=== PATIENT | male | born 1955 | race Caucasian/White ===

== ENCOUNTER 2017-11-22 10:07 | Inpatient (IN) | payer OTHER ==
[2017-11-22 10:57] LABS: ADD MAN DIFF? NO
[2017-11-22] MEDS: ASPIRIN 325 MG TAB PO (10:58)
[2017-11-22] MEDS: SOD CHLORIDE 0.9% 1,000 ML IV ×2 (10:59→12:24)
[2017-11-22 11:02] LABS: BASOPHILS % 0.4 % (0.0-2.0); EOSINOPHILS # 0.3 10^3/ul (0.0-0.5); EOSINOPHILS % 3.3 % (0.0-7.0); HEMOGLOBIN 12.9 g/dl (14.0-18.0); LYMPHOCYTES # 1.9 10^3/ul (0.8-2.9); LYMPHOCYTES % 25.3 % (15.0-51.0); MEAN CORPUSCULAR HEMOGLOBIN 27.2 pg (29.0-33.0); MEAN CORPUSCULAR HGB CONC 33.9 g/dl (32.0-37.0); MEAN PLATELET VOLUME 9.8 fl (7.4-10.4); MONOCYTE # 0.6 10^3/ul (0.3-0.9); MONOCYTES % 7.9 % (0.0-11.0); NEUTROPHIL # 4.8 10^3/ul (1.6-7.5); NEUTROPHILS % 62.6 % (39.0-77.0); PLATELET COUNT 181 10^3/UL (140-415); RED BLOOD COUNT 4.75 10^6/ul (4.70-6.10)
[2017-11-22 11:02] LABS: WHITE BLOOD COUNT 7.6 10^3/ul (4.8-10.8)
[2017-11-22 11:22] LABS: INR 1.02; PARTIAL THROMBOPLASTIN TIME 24.2 Sec (25.0-35.0); PROTIME 13.5 Sec (11.9-14.9); PT RATIO 1.1
[2017-11-22 11:24] LABS: ALANINE AMINOTRANSFERASE 28 IU/L (13-69); ALBUMIN 3.7 g/dl (3.3-4.9); ALBUMIN/GLOBULIN RATIO 1.27; ALKALINE PHOSPHATASE 91 IU/L (42-121); ANION GAP 18 (8-16); ASPARTATE AMINO TRANSFERASE 19 IU/L (15-46); BILIRUBIN,INDIRECT 0.4 mg/dl (0-1.1); BILIRUBIN,TOTAL 0.4 mg/dl (0.2-1.3); BLOOD UREA NITROGEN 20 mg/dl (7-20); CALCIUM 8.7 mg/dl (8.4-10.2); CARBON DIOXIDE 24 mmol/L (21-31); CHLORIDE 103 mmol/L (97-110); GLUCOSE 293 mg/dl (70-220); POTASSIUM 3.5 mmol/L (3.5-5.1); SODIUM 141 mmol/L (135-144); TOTAL PROTEIN 6.6 g/dl (6.1-8.1)
[2017-11-22 11:35] LABS: TROPONIN-I 0.015 ng/ml (0.000-0.120)
[2017-11-22] MEDS ORDERED: ONDANSETRON 4 MG INJ IV (12:30)
[2017-11-22] MEDS ORDERED: ACETAMINOPHEN 325 MG TAB PO ×2 (12:30→16:30)
[2017-11-22] MEDS: ASPIRIN (EC) 81 MG TAB PO (16:00)
[2017-11-22] MEDS ORDERED: DEXTROSE 50% 50 ML SYRINGE IV ×4 (16:30)
[2017-11-22] MEDS ORDERED: GLUCOSE GEL 15 GRAM TUBE PO ×4 (16:30)
[2017-11-22] MEDS ORDERED: GLUCOSE GEL 15 GRAM TUBE BUCCAL ×2 (16:30)
[2017-11-22] MEDS ORDERED: GLUCAGON 1 MG INJ IM ×2 (16:30)
[2017-11-22 16:46] LABS: CHOLESTEROL 111 mg/dl (100-200)
[2017-11-22 16:46] LABS: CHOL/HDL RATIO 3.5 RATIO; HDL CHOLESTEROL 31 mg/dl (30-78); LDL CHOLESTEROL,CALCULATED 39 mg/dl; TRIGLYCERIDES 205 mg/dl (0-149)
[2017-11-22] MEDS: DILTIAZEM (CD) 120 MG CAP PO (17:00)
[2017-11-22 17:17] LABS: PROSTATE SPECIFIC ANTIGEN 2.5 ng/ml (0.0-4.0)
[2017-11-22] MEDS: ACCU-CHEK XX ×2 (17:29→21:06)
[2017-11-22 17:30] LABS: HEMOGLOBIN A1C 13.2 % (0-5.9)
[2017-11-22] MEDS: glipiZIDE 10 MG TAB PO (17:47)
[2017-11-22] MEDS: RIVAROXABAN 20 MG TABLET PO (17:47)
[2017-11-22] MEDS: INSULIN ASPART [NOVOLOG] 3 ML PEN SC ×2 (17:51→21:05)
[2017-11-22] MEDS: TAMSULOSIN (SR) 0.4 MG CAP PO (20:53)
[2017-11-22] MEDS: ATORVASTATIN 40 MG TAB PO (20:54)
[2017-11-22] MEDS: MONTELUKAST 10 MG TAB PO (20:54)
[2017-11-22] MEDS: METOPROLOL 50 MG TAB PO (20:58)
[2017-11-22] MEDS: INSULIN GLARGINE [LANTus] (100 UNITS/ML) SYG SC (21:05)
[2017-11-23] MEDS: ACCU-CHEK XX ×2 (02:55→07:00)
[2017-11-23] MEDS ORDERED: ACCU-CHEK XX (07:00)
[2017-11-23] MEDS: DILTIAZEM (CD) 120 MG CAP PO (08:00)
[2017-11-23] MEDS: METOPROLOL 50 MG TAB PO ×2 (08:01→21:00)
[2017-11-23] MEDS: ASPIRIN (EC) 81 MG TAB PO (08:07)
[2017-11-23] MEDS: glipiZIDE 10 MG TAB PO ×2 (08:07→17:45)
[2017-11-23] MEDS: metFORMIN 500 MG TAB PO ×2 (08:08→17:45)
[2017-11-23] MEDS: LINAGLIPTIN 5 MG TABLET PO (08:08)
[2017-11-23] MEDS: INSULIN ASPART [NOVOLOG] 3 ML PEN SC ×7 (08:14→21:00)
[2017-11-23] MEDS: RIVAROXABAN 20 MG TABLET PO (17:45)
[2017-11-23] MEDS: MONTELUKAST 10 MG TAB PO (21:44)
[2017-11-23] MEDS: ATORVASTATIN 40 MG TAB PO (21:45)
[2017-11-23] MEDS: TAMSULOSIN (SR) 0.4 MG CAP PO (21:45)
[2017-11-23] MEDS: INSULIN GLARGINE [LANTus] (100 UNITS/ML) SYG SC (22:19)
[2017-11-24] MEDS: ACCU-CHEK XX (02:43)
[2017-11-24] MEDS: INSULIN ASPART [NOVOLOG] 3 ML PEN SC ×7 (07:45→20:45)
[2017-11-24] MEDS: ASPIRIN (EC) 81 MG TAB PO (08:12)
[2017-11-24] MEDS: glipiZIDE 10 MG TAB PO ×2 (08:12→17:31)
[2017-11-24] MEDS: metFORMIN 500 MG TAB PO ×2 (08:13→17:30)
[2017-11-24] MEDS: METOPROLOL 50 MG TAB PO ×2 (08:13→20:41)
[2017-11-24] MEDS: LINAGLIPTIN 5 MG TABLET PO (08:13)
[2017-11-24 14:50] LABS: ADD MAN DIFF? NO
[2017-11-24 14:53] LABS: BASOPHILS % 0.5 % (0.0-2.0); EOSINOPHILS # 0.3 10^3/ul (0.0-0.5); EOSINOPHILS % 3.2 % (0.0-7.0); HEMATOCRIT 38.6 % (42.0-52.0); HEMOGLOBIN 12.9 g/dl (14.0-18.0); LYMPHOCYTES # 2.2 10^3/ul (0.8-2.9); LYMPHOCYTES % 27.4 % (15.0-51.0); MEAN CORPUSCULAR HEMOGLOBIN 26.9 pg (29.0-33.0); MEAN CORPUSCULAR HGB CONC 33.4 g/dl (32.0-37.0); MEAN CORPUSCULAR VOLUME 80.6 fl (82.0-101.0); MEAN PLATELET VOLUME 9.8 fl (7.4-10.4); MONOCYTE # 0.8 10^3/ul (0.3-0.9); MONOCYTES % 9.6 % (0.0-11.0); NEUTROPHIL # 4.7 10^3/ul (1.6-7.5); NEUTROPHILS % 58.8 % (39.0-77.0); PLATELET COUNT 198 10^3/UL (140-415); RED BLOOD COUNT 4.79 10^6/ul (4.70-6.10); RED CELL DISTRIBUTION WIDTH 13.2 % (11.5-14.5)
[2017-11-24 14:53] LABS: WHITE BLOOD COUNT 7.9 10^3/ul (4.8-10.8)
[2017-11-24 15:17] LABS: ANION GAP 10 (8-16); BLOOD UREA NITROGEN 14 mg/dl (7-20); CALCIUM 9.2 mg/dl (8.4-10.2); CARBON DIOXIDE 26 mmol/L (21-31); CHLORIDE 105 mmol/L (97-110); GLUCOSE 116 mg/dl (70-220); POTASSIUM 4.3 mmol/L (3.5-5.1); SODIUM 137 mmol/L (135-144)
[2017-11-24] MEDS: RIVAROXABAN 20 MG TABLET PO (17:30)
[2017-11-24] MEDS: TAMSULOSIN (SR) 0.4 MG CAP PO (20:46)
[2017-11-24] MEDS: NIFEdipine (XL) 30 MG TAB PO (20:46)
[2017-11-24] MEDS: ATORVASTATIN 40 MG TAB PO (20:46)
[2017-11-24] MEDS: MONTELUKAST 10 MG TAB PO (20:46)
[2017-11-24] MEDS: INSULIN GLARGINE [LANTus] (100 UNITS/ML) SYG SC (20:49)
[2017-11-25] MEDS: ACCU-CHEK XX (02:00)
[2017-11-25] MEDS: INSULIN ASPART [NOVOLOG] 3 ML PEN SC ×7 (08:00→20:59)
[2017-11-25] MEDS: NIFEdipine (XL) 30 MG TAB PO ×2 (08:54→20:59)
[2017-11-25] MEDS: glipiZIDE 10 MG TAB PO ×2 (08:54→17:22)
[2017-11-25] MEDS: METOPROLOL 50 MG TAB PO ×2 (08:55→20:58)
[2017-11-25] MEDS: LINAGLIPTIN 5 MG TABLET PO (08:55)
[2017-11-25] MEDS: ASPIRIN (EC) 81 MG TAB PO (08:55)
[2017-11-25] MEDS: metFORMIN 500 MG TAB PO ×2 (08:55→17:22)
[2017-11-25] MEDS: RIVAROXABAN 20 MG TABLET PO (17:22)
[2017-11-25] MEDS: ATORVASTATIN 40 MG TAB PO (20:57)
[2017-11-25] MEDS: TAMSULOSIN (SR) 0.4 MG CAP PO (20:57)
[2017-11-25] MEDS: MONTELUKAST 10 MG TAB PO (20:57)
[2017-11-25] MEDS: INSULIN GLARGINE [LANTus] (100 UNITS/ML) SYG SC (21:17)
[2017-11-26] MEDS: ACCU-CHEK XX (01:43)
[2017-11-26 05:39] LABS: ADD MAN DIFF? NO
[2017-11-26 05:47] LABS: BASOPHIL # 0.1 10^3/ul (0.0-0.1); BASOPHILS % 0.6 % (0.0-2.0); EOSINOPHILS # 0.3 10^3/ul (0.0-0.5); EOSINOPHILS % 3.5 % (0.0-7.0); HEMATOCRIT 40.4 % (42.0-52.0); HEMOGLOBIN 13.4 g/dl (14.0-18.0); LYMPHOCYTES # 1.8 10^3/ul (0.8-2.9); LYMPHOCYTES % 21.6 % (15.0-51.0); MEAN CORPUSCULAR HEMOGLOBIN 26.9 pg (29.0-33.0); MEAN CORPUSCULAR HGB CONC 33.2 g/dl (32.0-37.0); MEAN CORPUSCULAR VOLUME 81.1 fl (82.0-101.0); MEAN PLATELET VOLUME 9.7 fl (7.4-10.4); MONOCYTE # 0.9 10^3/ul (0.3-0.9); MONOCYTES % 10.2 % (0.0-11.0); NEUTROPHIL # 5.4 10^3/ul (1.6-7.5); NEUTROPHILS % 63.5 % (39.0-77.0); PLATELET COUNT 204 10^3/UL (140-415); RED BLOOD COUNT 4.98 10^6/ul (4.70-6.10); RED CELL DISTRIBUTION WIDTH 13.1 % (11.5-14.5)
[2017-11-26 05:47] LABS: WHITE BLOOD COUNT 8.5 10^3/ul (4.8-10.8)
[2017-11-26 06:09] LABS: ANION GAP 11 (8-16); BLOOD UREA NITROGEN 15 mg/dl (7-20); CALCIUM 9.2 mg/dl (8.4-10.2); CARBON DIOXIDE 26 mmol/L (21-31); CHLORIDE 106 mmol/L (97-110); CREATININE 0.92 mg/dl (0.61-1.24); GLUCOSE 92 mg/dl (70-220); SODIUM 139 mmol/L (135-144)
[2017-11-26] MEDS: INSULIN ASPART [NOVOLOG] 3 ML PEN SC ×7 (07:47→20:49)
[2017-11-26] MEDS: NIFEdipine (XL) 30 MG TAB PO ×2 (08:27→20:50)
[2017-11-26] MEDS: glipiZIDE 10 MG TAB PO ×2 (08:27→17:05)
[2017-11-26] MEDS: metFORMIN 500 MG TAB PO ×2 (08:28→17:06)
[2017-11-26] MEDS: LINAGLIPTIN 5 MG TABLET PO (08:28)
[2017-11-26] MEDS: METOPROLOL 50 MG TAB PO (08:29)
[2017-11-26] MEDS: ASPIRIN (EC) 81 MG TAB PO (08:29)
[2017-11-26] MEDS: RIVAROXABAN 20 MG TABLET PO (17:06)
[2017-11-26] MEDS: MONTELUKAST 10 MG TAB PO (20:49)
[2017-11-26] MEDS: ATORVASTATIN 40 MG TAB PO (20:49)
[2017-11-26] MEDS: METOPROLOL 25 MG TAB PO (20:49)
[2017-11-26] MEDS: TAMSULOSIN (SR) 0.4 MG CAP PO (20:49)
[2017-11-26] MEDS: INSULIN GLARGINE [LANTus] (100 UNITS/ML) SYG SC (21:49)
[2017-11-27] MEDS: ACCU-CHEK XX ×2 (02:00→21:22)
[2017-11-27] MEDS: glipiZIDE 10 MG TAB PO ×2 (07:31→17:08)
[2017-11-27] MEDS: metFORMIN 500 MG TAB PO ×2 (07:31→17:08)
[2017-11-27] MEDS: INSULIN ASPART [NOVOLOG] 3 ML PEN SC ×7 (07:32→20:59)
[2017-11-27] MEDS: ASPIRIN (EC) 81 MG TAB PO (08:39)
[2017-11-27] MEDS: LINAGLIPTIN 5 MG TABLET PO (08:39)
[2017-11-27] MEDS: NIFEdipine (XL) 30 MG TAB PO ×2 (08:39→21:09)
[2017-11-27] MEDS: METOPROLOL 25 MG TAB PO ×2 (08:40→21:09)
[2017-11-27] MEDS: RIVAROXABAN 20 MG TABLET PO (17:08)
[2017-11-27] MEDS: MONTELUKAST 10 MG TAB PO (21:09)
[2017-11-27] MEDS: TAMSULOSIN (SR) 0.4 MG CAP PO (21:09)
[2017-11-27] MEDS: ATORVASTATIN 40 MG TAB PO (21:09)
[2017-11-27] MEDS: INSULIN GLARGINE [LANTus] (100 UNITS/ML) SYG SC (21:21)
[2017-11-28] MEDS: INSULIN ASPART [NOVOLOG] 3 ML PEN SC ×6 (08:00→17:56)
[2017-11-28] MEDS: NIFEdipine (XL) 30 MG TAB PO (08:13)
[2017-11-28] MEDS: ASPIRIN (EC) 81 MG TAB PO (08:13)
[2017-11-28] MEDS: METOPROLOL 25 MG TAB PO (08:13)
[2017-11-28] MEDS: metFORMIN 500 MG TAB PO ×2 (08:14→17:55)
[2017-11-28] MEDS: LINAGLIPTIN 5 MG TABLET PO (08:15)
[2017-11-28] MEDS: RIVAROXABAN 20 MG TABLET PO (17:55)
== END 2017-11-28 18:40 | disposition home or self-care (01) | DRG 69 ==
LOC: E/R 10:07 → 6WM 12:24
DX: G45.9 Transient cerebral ischemic attack, unspecified (principal); R53.1 Weakness; I10 Essential (primary) hypertension; E11.9 Type 2 diabetes mellitus without complications; I44.0 Atrioventricular block, first degree; I44.7 Left bundle-branch block, unspecified; Z79.02 Long term (current) use of antithrombotics/antiplatelets
CPT/HCPCS: 36415; 70450; 70551; 71045; 80048; 80053; 80061; 82962; 83036; 84153; 84154; 84443; 84484; 85025; 85610; 85730; 93005; 93306; 93880; 97116; 97162; 97530; 99285-25; G0378

== ENCOUNTER 2018-10-06 15:09 | Emergency (ER) | payer OTHER | END 2018-10-06 15:49 | disposition home or self-care (01) | LOC: FTE 15:09 → E/R 15:49 | DX: S80.861A Insect bite (nonvenomous), right lower leg, initial encounter (principal); L08.89 Other specified local infections of the skin and subcutaneous tissue; I10 Essential (primary) hypertension; E11.9 Type 2 diabetes mellitus without complications; J45.909 Unspecified asthma, uncomplicated; W57.XXXA Bitten or stung by nonvenomous insect and other nonvenomous arthropods, initial encounter; Y92.9 Unspecified place or not applicable; Z79.4 Long term (current) use of insulin; Z86.73 Personal history of transient ischemic attack (TIA), and cerebral infarction without residual deficits; Z79.82 Long term (current) use of aspirin | CPT/HCPCS: 99283 ==